=== PATIENT | male | born 1985 | race African-American/Black ===

== ENCOUNTER 2016-12-10 13:37 | Emergency (ER) | payer OTHER ==
[~2016-12-10] VITALS: Ht 177.8 cm; Wt 95.2 kg
[2016-12-10 13:46] VITALS: BP 144/76
== END 2016-12-10 14:33 | disposition home or self-care (01) ==
LOC: ED 13:37
DX: J02.9 Acute pharyngitis, unspecified (principal); R03.0 Elevated blood-pressure reading, without diagnosis of hypertension; R51 Headache; H66.92 Otitis media, unspecified, left ear